=== PATIENT | male | born 1955 | race Caucasian/White ===

== ENCOUNTER 2025-02-04 13:53 | Outpatient (REF) | payer MEDICARE, MEDICAID, SELFPAY ==
[2025-02-04 15:31] LABS: HCT 48.2 % (40.0-50.0); HGB 16.1 g/dL (13.5-17.5); MCH 29.3 pg (27.0-33.0); MCHC 33.4 % (32.0-36.0); MCV 88 fL (80-95); MPV 10.3 fL (8.0-11.0); Platelet Count 144 10^3/uL (130-400); RBC 5.50 10^6/uL (4.36-5.78); RDW 12.9 % (11.8-14.1); RDW-SD 42.1 fL; WBC 5.57 10^3/uL (4.4-10.8)
[2025-02-04 16:03] LABS: ALT 44 U/L (16-63); AST 26 U/L (15-37); Albumin 3.8 g/dL (3.4-5.0); Alkaline Phosphatase 116 U/L (46-116); Anion Gap 7.9 mmol/L (3-11); BUN 15 mg/dL (7-18); Bilirubin, Total 0.7 mg/dL (0.2-1.0); CO2 27.1 mmol/L (21.0-32.0); Calcium 8.9 mg/dL (8.5-10.1); Chloride 103 mmol/L (98-107); Cholesterol 284 mg/dL (<200); Glucose 105 mg/dL (74-106); HDL Cholesterol 71 mg/dL (>or=40); Potassium 4.3 mmol/L (3.5-5.1); Sodium 138 mmol/L (136-145); TSH (W/Ref FT4) 3.04 uIU/mL (0.36-3.74); Total Protein 7.1 g/dL (6.4-8.2)
[2025-02-04 16:54] LABS: Hemoglobin A1C 5.7 % (<5.7)
[2025-02-05 10:35] LABS: PSA, Screening 0.7 ng/mL (<=4.5)
== END 2025-02-04 13:54 | disposition home or self-care (01) ==
LOC: NCHCN 13:53
PROVIDERS: Visit Provider Family Medicine
DX: Z13.220 Encounter for screening for lipoid disorders (principal); Z13.1 Encounter for screening for diabetes mellitus; Z12.5 Encounter for screening for malignant neoplasm of prostate; I10 Essential (primary) hypertension; E66.3 Overweight
CPT/HCPCS: 80053; 80061; 84153; 85027; 83036; 84443

== ENCOUNTER 2025-03-20 17:58 | Emergency (ER) | payer MEDICARE, MEDICAID, SELFPAY ==
[2025-03-20 18:05] VITALS: BP 153/95; PULSE 60; RESP 18; TEMP 36.9; O2SAT 97
--- NOTE | 2025-03-20 18:34 | ED.GENADUL_ITS ---
Discharge Plan Disposition Patient Disposition: Home Condition: Stable Discharge Details Clinical Impression: Cellulitis Primary Care Provider: Unknown,Unknown ED Provider: Arianne Watson Home Meds and New Rx's Prescriptions: New cefpodoxime 200 mg tablet 200 mg PO BID 7 Days Qty: 14 0RF Rx Instructions: must administer with a meal/food sulfamethoxazole-trimethoprim [Bactrim DS] 800-160 mg tablet 1 tab PO BID 7 Days Qty: 14 0RF Discharge Instructions Instructions: Cellulitis (Skin Infection), Adult ED Additional Instructions: You were seen in the emergency department today for evaluation of an injury sustained to your right chamberlain. It appears to have become infected, and you need to start antibiotics. You will take 2 different antibiotics twice per day, and to take all this medication until it is gone, even if you start to feel better. You should keep the area clean and dry, use topical antibiotic ointment, and keep it dressed when you are up and about. You can use Tylenol and ibuprofen as needed for management of pain. We did provide you with a tetanus booster today. Please follow-up with your primary care provider in the next few days to discuss this visit and any symptoms that change, worsen, or persist. Thank you for allowing us to be part of your care. HPI General Mode of arrival: ambulatory . Date/Time Provider Initiated Documentation: 03/20/25 18:20 . Limitations to Documentation: language barrier . Information obtained by: patient, family and old records reviewed . HPI Narrative: This is a 70-year-old male patient without significant past medical history presenting for evaluation of an injury to his right chamberlain. About a week ago the patient was working on a ladder and slipped and fell, lacerating his chamberlain on the metal. He reports that he has been trying to keep the area clean with antiseptic and peroxide, has noted increasing redness, swelling, and discomfort. He cannot remember if he has ever had a tetanus shot, states that his pain is fairly well-controlled and he has not been requiring Tylenol or ibuprofen. He did not injure any other part of his body during his fall, has been able to ambulate and move the leg, and has no other acute concerns at this time. The patient is Filipino-speaking, and iPad staff interpreter was utilized for this provider's examination. Related Data Home Medications Medication Instructions Recorded Confirmed cefpodoxime 200 mg tablet 200 mg PO BID 7 days #14 tab s 03/20/25 sulfamethoxazole 800 1 tab PO BID 7 days #14 tabs 03/20/25 mg-trimethoprim 160 mg tablet (Bactrim DS) Previous Rx's Medication Instructions Recorded cefpodoxime 200 mg tablet 200 mg PO BID 7 days #14 tab s 03/20/25 sulfamethoxazole 800 1 tab PO BID 7 days #14 tabs 03/20/25 mg-trimethoprim 160 mg tablet (Bactrim DS) Allergies Allergy/AdvReac Type Severity Reaction Status Date / Time No Known Allergies Allergy Unverified 03/20/25 18:10 General Stated Complaint: Laceration ELLEN: 4 Exam Narrative Exam Narrative: Gen: Awake and alert, in no apparent distress HEENT: Non-icteric sclera Neck: Supple Lungs: No apparent respiratory distress, normal respiratory effort. CV: Appears well perfused, heart with regular rate and rhythm Abdomen: Non-distended MSK: Moves 4 extremities without apparent limitation in ROM. No bony tenderness over the chamberlain, no deformity, no posterior calf tenderness or peripheral edema Skin: Visualized skin without rashes, cyanosis. The patient's right chamberlain has an approximately 3 cm healing laceration with surrounding redness, induration, and swelling. No significant fluctuance palpable, no active drainage. Neuro: Normal Gait, no obvious focal deficits or facial asymmetry. Speaks in full, clear sentences. Strong DP pulses distal to the injury Psych: Appropriate for situation. Course Vital Signs Vital signs: Vital Signs Temperature 36.9 C 03/20/25 18:05 Pulse 60 03/20/25 18:05 Respiratory Rate 18 03/20/25 18:05 Blood Pressure 153/95 H 03/20/25 18:05 Pulse Oximetry 97 03/20/25 18:05 Temperature 36.9 C 03/20/25 18:05 Pulse 60 03/20/25 18:05 Respiratory Rate 18 03/20/25 18:05 Blood Pressure 153/95 H 03/20/25 18:05 Pulse Oximetry 97 03/20/25 18:05 Pain Level 3 03/20/25 18:05 Medical Decision Making This is a 70-year-old male patient presenting for evaluation of a leg injury. D ifferential includes was not limited to cellulitis, less likely abscess, considered fracture though the patient is ambulatory, without deformity or significant bony tenderness on exam. No systemic symptoms to suggest sepsis or bacteremia, no neurovascular derangements distal to the injury. I provided the patient with a tetanus booster as well as his first dose of cefpodoxime and Bactrim. A prescription for same was sent to his pharmacy. I counseled him on wound care and completing the entire course of antibiotics, as well as conservative management of pain and swelling. At this time, the patient has had a full medical evaluation and is safe for discharge to home. They are hemodynamically stable, ambulatory, and tolerating PO. They are understanding of the follow-up plan and return precautions. They left our facility without incident. Arianne Watson MD [facility] All Active Problems (Updated 03/20/25 @ 18:34 by Arianne Watson MD) Cellulitis (Acute) Social History Smoking/Tobacco Use Status: Never Smoking risk assessment performed?: Yes Alcohol Intake: current Alcohol Intake frequency: holidays/special occasions only Substance use type: does not use Housing: house Do you feel safe at home: Yes Do you feel safe in your relationship?: Yes
[2025-03-20] MEDS: Cefpodoxime 200 MG TAB 400 MG PO (18:48)
[2025-03-20] MEDS: Diph,Pertuss(Acell),Tet Vac/Pf 0.5 ML SYR IM (18:51)
== END 2025-03-20 18:57 | disposition home or self-care (01) ==
LOC: ER 19:36
PROVIDERS: Emergency Provider Emergency Medicine
DX: L03.115 Cellulitis of right lower limb (principal); Z23 Encounter for immunization
CPT/HCPCS: 99283; 99284; 90471; 90715